=== PATIENT | male | born 1940 | race Caucasian/White ===

== ENCOUNTER 2021-08-08 08:25 | Emergency (ER) | payer OTHER ==
--- NOTE | 2021-08-08 08:43 | EDPHYS ---
Physician Documentation [facility] Name: Michele Mckeon Age: 81 yrs Sex: Male : 1940 Arrival Date: 08/08/2021 Time: 08:27 Bed 3 Private MD: ED Physician Linda Carr HPI: 08/08 08:35 This 81 yrs old Unknown Male presents to ER via Unassigned with complaints of fall. ma2 08:35 Is a 1-year-old male [facility] he states that he feels slightly while still in ma2 the toilet slept all day went down to the floor patient was awake no head trauma. Patient denies pain anywhere states he has no symptoms would like to be discharge. . Historical: - PMHx: 08:36 Hyperlipidemia; Hypertension; Depressive disorder; Hypothyroidism; ww - Immunization history:: Adult Immunizations unknown. - Social history:: Smoking status: unknown. - Family history:: not pertinent. ROS: 08:35 Constitutional: Negative for fever, chills, and weight loss. ma2 08:35 All other systems are negative. Exam: 08:35 Constitutional: This is a well developed, well nourished patient who is awake, alert, ma2 and in no acute distress. Head/Face: Normocephalic, atraumatic. Eyes: Pupils equal round and reactive to light, extra-ocular motions intact. Lids and lashes normal. Conjunctiva and sclera are non-icteric and not injected. Cornea within normal limits. Periorbital areas with no swelling, redness, or edema. ENT: Nares patent. No nasal discharge, no septal abnormalities noted. Tympanic membranes are normal and external auditory canals are clear. Oropharynx with no redness, swelling, or masses, exudates, or evidence of obstruction, uvula midline. Mucous membranes moist. Neck: Trachea midline, no thyromegaly or masses palpated, and no cervical lymphadenopathy. Supple, full range of motion without nuchal rigidity, or vertebral point tenderness. No Meningismus. Chest/axilla: Normal chest wall appearance and motion. Nontender with no deformity. No lesions are appreciated. Cardiovascular: Regular rate and rhythm with a normal S1 and S2. No gallops, murmurs, or rubs. Normal PMI, no JVD. No pulse deficits. Respiratory: Lungs have equal breath sounds bilaterally, clear to auscultation and percussion. No rales, rhonchi or wheezes noted. No increased work of breathing, no retractions or nasal flaring. Abdomen/GI: Soft, non-tender, with normal bowel sounds. No distension or tympany. No guarding or rebound. No evidence of tenderness throughout. Back: No spinal tenderness. No costovertebral tenderness. Full range of motion. Skin: Warm, dry with normal turgor. Normal color with no rashes, no lesions, and no evidence of cellulitis. MS/ Extremity: Pulses equal, no cyanosis. Neurovascular intact. Full, normal range of motion. Neuro: Awake and alert, GCS 15, oriented to person, place, time, and situation. Cranial nerves II-XII grossly intact. Motor strength 5/5 in all extremities. Sensory grossly intact. Cerebellar exam normal. Normal gait. Vital Signs: 08:27 BP 170 / 114; Pulse 79; Resp 18; Temp 97.9; Pulse Ox 100% ; Weight 63.5 kg; Height 5 ww ft. 8 in. (172.72 cm); Pain 0/10; 08:27 Body Mass Index 21.29 (63.50 kg, 172.72 cm) ww MDM: 08:33 Patient medically screened. ma2 08:35 Differential Diagnosis [facility]. Data reviewed: vital signs, nurses notes. ma2 Counseling: I had a detailed discussion with the patient and/or guardian regarding: the historical points, exam findings, and any diagnostic results supporting the discharge/admit diagnosis, the presence of at least one elevated blood pressure reading (>120/80) during this emergency department visit, the need for outpatient follow up. Response to treatment: the patient's symptoms have markedly improved after treatment. Administered Medications: No medications were administered Disposition Summary: 08/08/21 08:42 Discharge Ordered Location: Home ma2 Condition: Stable ma2 Diagnosis - Fall on same level, unspecified ma2 Followup: ma2 - With: Private Physician - When: Tomorrow - Reason: If symptoms return, Continuance of care Discharge Instructions: - Discharge Summary Sheet ma2 - Fall Prevention in Hospitals, Adult ma2 Forms: - Medication Reconciliation Form ma2 - Thank You Letter ma2 - Antibiotic Education ma2 - Prescription Opioid Use ma2 Signatures: Linda Carr MD MD ma2 Stephanie Gomez, RN RN ww
--- NOTE | 2021-08-08 08:43 | ER ---
Nurse's Notes [facility] Name: Michele Mckeon Age: 81 yrs Sex: Male : 1940 Arrival Date: 08/08/2021 Time: 08:27 Bed 3 Private MD: Diagnosis: Fall on same level, unspecified Presentation: 08/08 08:27 Chief complaint: EMS states: From [place] assisted. Patient sat on the toilet ww last night and slid down to the floor. Patient denies any LOC, injury or hitting his head. care home staff called EMS due to patient having an abnormal gait but was able to ambulate to the stretcher with no complaints. EMS reported that assisted staff he does not take his medication. Coronavirus screen: Client denies travel out of the [place] in the last 14 days. Ebola Screen: Patient denies travel to an Ebola-affected area in the 21 days before illness onset. Initial Sepsis Screen: Does the patient meet any 2 criteria? No. Patient's initial sepsis screen is negative. Does the patient have a suspected source of infection? No. Patient's initial sepsis screen is negative. Risk Assessment: Do you want to hurt yourself or someone else? Patient reports no desire to harm self or others. Onset of symptoms is unknown. 08:27 Method Of Arrival: EMS: [facility] 08:27 Acuity: SUMAYA 4 ww Triage Assessment: 08:36 General: Appears in no apparent distress. unkempt, Behavior is calm, cooperative. Pain: ww Denies pain. EENT: No signs and/or symptoms were reported regarding the EENT system. Neuro: Level of Consciousness is awake, alert, obeys commands, Oriented to person, place, time, situation, Speech is normal. Cardiovascular: Patient's skin is warm and dry. Chest pain is denied. Respiratory: Airway is patent Respiratory effort is even, unlabored, Respiratory pattern is regular, symmetrical. Derm: Skin is thin. Musculoskeletal: No signs and/or symptoms reported regarding the musculoskeletal system. Historical: - PMHx: 08:36 Hyperlipidemia; Hypertension; Depressive disorder; Hypothyroidism; ww - Immunization history:: Adult Immunizations unknown. - Social history:: Smoking status: unknown. - Family history:: not pertinent. Screenin:39 Abuse screen: Denies threats or abuse. Denies injuries from another. Nutritional ww screening: No deficits noted. Tuberculosis screening: No symptoms or risk factors identified. Fall Risk. Assessment: 08:39 Reassessment: Patient appears in no apparent distress at this time. No changes from ww previously documented assessment. Patient and/or family updated on plan of care and expected duration. Pain level reassessed. Patient is alert/active/playful, equal unlabored respirations, skin warm/dry/pink. see triage assessment. Dr. Alexander at bedside. Vital Signs: 08:27 BP 170 / 114; Pulse 79; Resp 18; Temp 97.9; Pulse Ox 100% ; Weight 63.5 kg; Height 5 ww ft. 8 in. (172.72 cm); Pain 0/10; 08:27 Body Mass Index 21.29 (63.50 kg, 172.72 cm) ww ED Course: :27 Patient arrived in ED. ww 08:30 Santiago Croft [facility] pm1 08:30 Linda Carr MD is Attending Physician. pm1 08:36 Triage completed. ww 08:36 Arm band placed on. ww 08:39 Patient has correct armband on for positive identification. Bed in low position. Call ww light in reach. Side rails up X2. Pulse ox on. NIBP on. 09:44 Stephanie Gomez, RN is Primary Nurse. ww 09:44 No provider procedures requiring assistance completed. Patient did not have IV access ww during this emergency room visit. Administered Medications: No medications were administered Medication: 08:39 VIS not applicable for this client. ww Outcome: 08:42 Discharge ordered by . lula 09:44 Discharged to assisted. Report called to [facility]. Stated its the ww weekend and they do not have trasnportation 09:44 Condition: stable 09:44 Discharge instructions given to patient, family, EMS, Instructed on discharge instructions. 09:45 Patient left the ED. ww Signatures: Santiago Croft NP [employer] pm1 Linda Carr MD MD ma2 Wood, Whitney RN RN phyllis
[2021-08-08 10:09] VITALS: BP 170/114; TEMP 97.9; O2SAT 100
== END 2021-08-08 09:45 | disposition home or self-care (01) ==
LOC: ER 08:25
DX: Z04.3 Encounter for examination and observation following other accident (principal); W17.89XA Other fall from one level to another, initial encounter; Y93.89 Activity, other specified; Y92.121 Bathroom in nursing home as the place of occurrence of the external cause; E78.5 Hyperlipidemia, unspecified; I10 Essential (primary) hypertension; E03.9 Hypothyroidism, unspecified; F32.A Depression, unspecified
CPT/HCPCS: 99283